=== PATIENT | female | born 1960 | race Caucasian/White ===

== ENCOUNTER 2019-01-07 12:35 | Emergency (ER) | payer SELFPAY ==
[~2019-01-07] VITALS: Wt 72.9 kg
[~2019-01-07 12:35] MED LIST: BACTDS PO; CEPH500C PO; HYDR-3498 PO; IBUP-1542 PO
[2019-01-07 12:38] VITALS: BP 104/57; PULSE 68; RESP 16
[2019-01-07] MEDS ORDERED: HYDR-4011 PO (14:14)
[2019-01-07] MEDS ORDERED: ACYC800T5 PO (14:14)
[2019-01-07] MEDS ORDERED: PRED20TA PO (14:14)
[2019-01-07] MEDS ORDERED: predniSONE 20 MG TAB PO ONE (14:30)
--- NOTE | 2019-01-07 15:52 | ERD ---
ER Documentation Chief Complaint Chief Complaint LEFT DELTOID PAIN/REDNESS HPI 58-year-old female presenting with rash to left deltoid. She states it has been going for the last week and is very painful. She believes she was bitten by spider. Denies any fevers. Has not use medications. Denies medical problems. NKDA. Surgical history is appendectomy. Social history denies ROS All systems reviewed and are negative except as per history of present illness. Medications Home Meds Active Scripts Hydrocodone/Acetaminophen (Stanley 5-325 Tablet) 1 Each Tablet, 1 TAB PO Q6H PRN for PAIN, #7 TAB Prov:PRIYANKA HAZEL PA-C 01/07/19 Acyclovir* (Zovirax*) 800 Mg Tablet, 800 MG PO 5 TIMES DAILY for 7 Days, TAB Prov:PRIYANKA HAZEL PA-C 01/07/19 Prednisone* (Prednisone*) 20 Mg Tab, 40 MG PO DAILY for 4 Days, TAB Prov:PRIYANKA HAZEL PA-C 01/07/19 Sulfamethoxazole-Trimethoprim* (Bactrim* DS) 800-160 Mg Tab, 1 TAB PO BID for 10 Days, TAB Prov:MEAGAN TREVIÑO NP 07/23/15 Ibuprofen* (Motrin*) 600 Mg Tab, 600 MG PO Q6, #30 TAB Prov:REGINA MARIN 07/22/15 Ibuprofen* (Ibuprofen*) 600 Mg Tablet, 600 MG PO Q6, #30 TAB Prov:MECHE GRAHAM PA-C 07/12/15 Cephalexin* (Cephalexin*) 500 Mg Capsule, 500 MG PO Q6 for 7 Days, CAP Prov:MECHE GRAHAM PA-C 07/12/15 Hydrocodone Bit-Acetaminophen* (Stanley*) 5-325 Mg Tab, 1 TAB PO Q4H PRN for PAIN, #20 TAB Prov:MECHE GRAHAM PA-C 07/12/15 Reported Medications [None] No Conflict Check 06/09/13 Allergies Allergies: Coded Allergies: No Known Allergy (Unverified , 06/09/13) PMhx/Soc History of Surgery: Yes (, api) Anesthesia Reaction: No Hx Neurological Disorder: No Hx Respiratory Disorders: No Hx Cardiac Disorders: No Hx Psychiatric Problems: No Hx Miscellaneous Medical Probl: No Hx Alcohol Use: No Hx Substance Use: No Hx Tobacco Use: No FmHx Family History: No diabetes, No coronary disease, No other Physical Exam Vitals Vital Signs Date Temp Pulse Resp B/P (MAP) Pulse Ox O2 O2 Flow FiO2 Time Delivery Rate 01/07/19 98.7 68 16 104/57 98 12:38 (73) Physical Exam GENERAL: The patient is well-appearing, well-nourished, in no acute distress CHEST: Clear to auscultation bilaterally. There are no rales, wheezes or rhonchi. HEART: Regular rate and rhythm. No murmurs, clicks, rubs or gallops. SKIN: Vesicular rash noted to left shoulder. No bleeding. No pustules. EXTREMITIES: Equal pulses bilaterally. There is no peripheral clubbing, cyanosis or edema. No focal swelling or erythema. Full range of motion. Results 24 hrs Current Medications Medications Dose Sig/Kayla Start Time Status Last (Trade) Ordered Route PRN Stop Time Admin Dose Reason Admin Prednisone 60 mg ONCE ONCE 01/07/19 DC 01/07/19 (Prednisone) PO 14:30 14:30 01/07/19 14:31 Procedures/MDM ER course: Prednisone given the ED. MDM: 58-year-old female presenting with signs of shingles. I have low suspicion for infectious etiology. I have low suspicion for bacterial infection. Patient is discharged stricter precautions and told to follow-up with primary care within 1-2 days for close evaluation. Patient is told to take medications as prescribed. All questions answered at discharge Departure Diagnosis: Primary Impression: Shingles Condition: Stable Patient Instructions: Shingles (Herpes Zoster) Referrals: [facility] YOU HAVE RECEIVED A MEDICAL SCREENING EXAM AND THE RESULTS INDICATE THAT YOU DO NOT HAVE A CONDITION THAT REQUIRES URGENT TREATMENT IN THE EMERGENCY DEPARTMENT. FURTHER EVALUATION AND TREATMENT OF YOUR CONDITION CAN WAIT UNTIL YOU ARE SEEN IN YOUR DOCTORS OFFICE WITHIN THE NEXT 1-2 DAYS. IT IS YOUR RESPONSIBILITY TO MAKE AN APPOINTMENT FOR FOLOW-UP CARE. IF YOU HAVE A PRIMARY DOCTOR --you should call your primary doctor and schedule an appointment IF YOU DO NOT HAVE A PRIMARY DOCTOR YOU CAN CALL OUR PHYSICIAN REFERRAL HOTLINE AT IF YOU CAN NOT AFFORD TO SEE A PHYSICIAN YOU CAN CHOSE FROM THE FOLLOWING [facility] CLINICS [facility] [id number] [facility] [address] [facility] [address] [facility] [address] [facility] [address] [facility]. [facility]. [address] Additional Instructions: FOLLOW UP WITH YOUR PRIMARY CARE PHYSICIAN TOMORROW.Return to this facility if you are not improving as expected. PRIYANKA HAZEL PA-C Jan 07, 2019 15:52
== END 2019-01-07 15:16 | disposition home or self-care (01) ==
LOC: FTE 12:35
DX: B02.9 Zoster without complications (principal)
CPT/HCPCS: 99283; J7512